=== PATIENT | female | born 1985 | race Caucasian/White ===

== ENCOUNTER → 2018-01-11 | Outpatient (CLI) | payer OTHER ==
[~2018-01-11] VITALS: Ht 154.9 cm; Wt 57.7 kg
[~2018-01-11] MED LIST: ESTRACE2 MG PO
== END | disposition home or self-care (01) ==
LOC: AMB 13:40
PROC: 0DJ08ZZ Inspection of Upper Intestinal Tract, Via Natural or Artificial Opening Endoscopic (ICD-10-PCS; principal; 2018-01-11)
DX: F45.8 Other somatoform disorders (principal); R12 Heartburn
CPT/HCPCS: J2250